=== PATIENT | female | born 1985 | race American Indian/Alaskan Native ===

== ENCOUNTER 2017-08-20 17:25 | Emergency (ER) | payer BC, OTHER ==
[2017-08-20 17:44] VITALS: BMI 29.5
[2017-08-20 17:47] VITALS: TEMP 98.2
--- NOTE | 2017-08-20 18:09 | ED PDOC ---
Arrival/HPI - General Historian: Patient - History of Present Illness Time/Duration: < week Symptom Onset: Gradual Symptom Course: Intermittent Quality: Tightness Severity Level: 4 Activities at Onset: Rest Context: Sitting, Home <MICHAEL PATTON - Last Filed: 08/20/17 22:06> <Jorge Johnson - Last Filed: 08/20/17 22:23> - General Chief Complaint: Back Pain Time Seen by Provider: 08/20/17 17:50 - History of Present Illness Narrative History of Present Illness (Text): 08/20/17 18:05 32yo AAF with no significant PMH presents w/ R-sided lower back pain that began 3 days ago. Pt describes the pain as tightness, non-radiating, relieved w/ Motrin, 4/10 in severity, and constant. Pt denies any fevers, chills, coughs, cp , sob, n/v/d, numbness/tingling, weakness, trauma or over-exertion. Pt works as a senior security analyst. Pt states that she was on OCP's from February till May for menstrual cycle regulation and has had regular 7day periods in May and June. Pt denies being sexually active. Pt states that pain is worse when laying down, and says it could be due to her bed. (MICHAEL PATTON) Past Medical History - Provider Review Nursing Documentation Reviewed: Yes - Past History Past History: No Previous - Infectious Disease Hx of Infectious Diseases: None - Tetanus Immunization Tetanus Immunization: Unknown - Past Medical History Past Medical History: No Previous - Cardiac Hx Cardiac Disorders: No - Pulmonary Hx Respiratory Disorders: No - Neurological Hx Neurological Disorder: No - HEENT Hx HEENT Disorder: No - Renal Hx Renal Disorder: No - Endocrine/Metabolic Hx Endocrine Disorders: No - Hematological/Oncological Hx Blood Disorders: No - Integumentary Hx Dermatological Disorder: No - Musculoskeletal/Rheumatological Hx Musculoskeletal Disorders: No - Gastrointestinal Hx Gastrointestinal Disorders: No - Genitourinary/Gynecological Hx Genitourinary Disorders: No - Psychiatric Hx Depression: No Hx Emotional Abuse: No Hx Physical Abuse: No Hx Substance Use: No - Past Surgical History Past Surgical History: No Previous - Anesthesia Hx Anesthesia: No - Suicidal Assessment Feels Threatened In Home Enviroment: No <MICHAEL PATTON - Last Filed: 08/20/17 22:06> Family/Social History Family/Social History: No Known Family HX Smoking Status: Never Smoked Hx Alcohol Use: No Hx Substance Use: No Hx Substance Use Treatment: No <MICHAEL PATTON - Last Filed: 08/20/17 22:06> Allergies/Home Meds <ABDIMICHAEL BELL - Last Filed: 08/20/17 22:06> <Ricardo Johnsonoper - Last Filed: 08/20/17 22:23> Allergies/Adverse Reactions: Allergies No Known Allergies Allergy (Verified 10/31/13 09:00) Home Medications: Home Meds Medication Instructions Recorded Confirmed No Known Home Med 08/20/17 08/20/17 Review of Systems - Physician Review All systems were reviewed & negative as marked: Yes - Review of Systems Constitutional: Normal. absent: Fatigue, Fevers, Night Sweats Respiratory: Normal Cardiovascular: Normal. absent: Chest Pain Gastrointestinal: Normal. absent: Abdominal Pain, Nausea, Vomiting Musculoskeletal: Back Pain (R ) <MICHAEL PATTON - Last Filed: 08/20/17 22:06> Physical Exam Vital Signs Reviewed: Yes Appearance: Positive for: Well-Appearing Pain Distress: None Mental Status: Positive for: Alert and Oriented X 3 - Systems Exam Head: Present: Atraumatic, Normocephalic Pupils: Present: PERRL Extroacular Muscles: Present: EOMI Conjunctiva: Present: Normal Ears: Present: Normal Mouth: Present: Moist Mucous Membranes Nose (External): Present: Atraumatic Neck: Present: Normal Range of Motion. No: JVD Respiratory/Chest: Present: Clear to Auscultation, Good Air Exchange Cardiovascular: Present: Regular Rate and Rhythm, Normal S1, S2 Abdomen: Present: Normal Bowel Sounds. No: Tenderness, Distention Back: Present: Paraspinal Tenderness (R lumbar ) Upper Extremity: Present: Normal Inspection Lower Extremity: Present: Normal Inspection <MICHAEL PATTON - Last Filed: 08/20/17 22:06> Vital Signs Temp Pulse Resp BP Pulse Ox 08/20/17 21:16 69 16 119/75 100 08/20/17 19:25 72 17 115/80 100 08/20/17 17:46 98.2 F 75 18 114/76 99 Medical Decision Making <MICHAEL PATTON - Last Filed: 08/20/17 22:06> <Jorge Johnson - Last Filed: 08/20/17 22:23> ED Course and Treatment: 08/20/17 18:19 Impression: Musculoskeletal back pain Differential Diagnosis included but are not limited to: MSK pain vs ectopic vs nephrolithiasis Plan: - Reassess and disposition - POC test - Motrin and Flexeril for back pain Progress Notes: 08/20/17 18:27 Nurse notified team that POC urinary test was positive 08/20/17 20:41 EXAM: US , Transvaginal CLINICAL HISTORY: The patient is a 32 years female; Pain; complicated by abdominal or pelvic pain; Lower; First trimester; Gestational age or lmp: 5 weeks; ; Additional info: R/ O ectopic 08/20/2017 6:17 PM TECHNIQUE: Real-time transvaginal obstetrical ultrasound of the maternal pelvis and a first trimester with image documentation. Transvaginal imaging was used for better evaluation of the fetus and adnexa. COMPARISON: No relevant prior studies available. FINDINGS: Gestation: Single intrauterine with yolk sac. No pole is identified at this time. The gestational sac corresponds to gestational age of 5 weeks and 1 day. Anteverted uterus. Uterus/cervix: See above Ovaries: 1.2 cm cystic structure in the right ovary. Otherwise, ovaries are normal size and demonstrate vascular flow.. Free fluid: No evidence of free fluid in the submitted imgaes. IMPRESSION: Single intrauterine with yolk sac. No pole is identified at this time. The gestational sac corresponds to gestational age of 5 weeks and 1 day. The remainder of the findings are as described above. EXAM: US First Trimester, Transabdominal CLINICAL HISTORY: The patient is a 32 years female; Pain; complicated by abdominal or pelvic pain; Lower; First trimester; Gestational age or lmp: 5 weeks; ; Additional info: R/ O ectopic 08/20/2017 6:17 PM TECHNIQUE: Real-time transabdominal obstetrical ultrasound of the maternal pelvis and a first trimester with image documentation. COMPARISON: No relevant prior studies available. FINDINGS: Gestation: Single intrauterine with yolk sac. No pole is identified at this time. The gestational sac corresponds to gestational age of 5 weeks and 1 day. Anteverted uterus. Uterus/cervix: See above Ovaries: 1.2 cm cystic structure in the right ovary. Otherwise, ovaries are normal size and demonstrate vascular flow.. Free fluid: No evidence of free fluid in the submitted imgaes. IMPRESSION: Single intrauterine with yolk sac. No pole is identified at this time. The gestational sac corresponds to gestational age of 5 weeks and 1 day. The remainder of the findings are as described above. Thank you for allowing us to participate in the care of your patient. Dictated and Authenticated by: Dane Pantoja MD 08/20/2017 8:10 PM Eastern Time ([place] & [place]) (MICHAEL PATTON) Patient Seen With Resident: In agreement with resident note which contains more details about the patient. Patient was seen and evaluated with resident. Came up with plan and treatment together. 08/20/17 22:21 Seen and examined with the resident. Our history and physical exam reveals a young woman who stopped her control pills several months ago. Her LMP is sometime in May. She complains of right lower back pain. She earlier had some right lower quadrant pain. There was no known injury or trauma. No radiation of the pain. No numbness tingling or paresthesias. No weakness. No nausea vomiting or diarrhea. No vaginal discharge or bleeding. No genitourinary symptoms. Her test is positive. Her abdomen is soft and nontender on exam, but we will rule out an ectopic with ultrasound. (Jorge Johnson) - Lab Interpretations Lab Results: 08/20/17 18:40 08/20/17 18:40 Lab Results 08/20/17 18:40: Beta HCG, Quant [id number] H 08/20/17 18:40: Sodium 139, Potassium 3.3 L, Chloride 100, Carbon Dioxide 27, Anion Gap 16, BUN 10, Creatinine 0.7, Est GFR ( Amer) > 60, Est GFR (Non- Af Amer) > 60, Random Glucose 84, Calcium 9.0, Phosphorus 3.4, Magnesium 1.7, Total Bilirubin 0.3, AST 25, ALT 25, Alkaline Phosphatase 81, Total Protein 7.7 , Albumin 4.3, Globulin 3.3, Albumin/Globulin Ratio 1.3 08/20/17 18:40: WBC 8.8, RBC 4.84, Hgb 12.1, Hct 37.6, MCV 77.7 L, MCH 25.0, MCHC 32.2, RDW 15.9 H, Plt Count 244, MPV 10.3, Gran % 53.7, Lymph % (Auto) 36.4 H, Cole % (Auto) 9.4 H, Eos % (Auto) 0.3 L, Baso % (Auto) 0.2, Gran # 4.70 , Lymph # 3.2, Cole # 0.8 H, Eos # 0.0, Baso # 0.02 08/20/17 18:26: Urine Color Yellow, Urine Appearance Sl cloudy, Urine pH 7.5, Ur Specific [place] 1.015, Urine Protein 30 H, Urine Glucose (UA) Negative, Urine Ketones Trace H, Urine Blood Negative, Urine Nitrate Negative, Urine Bilirubin Negative, Urine Urobilinogen 1.0 H, Ur Leukocyte Esterase Negative, Urine RBC 0 - 2, Urine WBC 1 - 3, Ur Epithelial Cells Many, Amorphous Sediment Few, Urine Bacteria Mod - RAD Interpretation Radiology Orders: 08/20/17 18:17 OB TRANSVAGINAL [US] Urgent Disposition/Present on Arrival - Present on Arrival Any Indicators Present on Arrival: No History of DVT/PE: No History of Uncontrolled Diabetes: No Urinary Catheter: No History of Decub. Ulcer: No History Surgical Site Infection Following: None - Disposition Have Diagnosis and Disposition been Completed?: Yes Disposition Time: 20:45 Patient Plan: Discharge <MICHAEL PATTON - Last Filed: 08/20/17 22:06> - Present on Arrival Any Indicators Present on Arrival: No History of DVT/PE: No History of Uncontrolled Diabetes: No Urinary Catheter: No History of Decub. Ulcer: No - Disposition Have Diagnosis and Disposition been Completed?: Yes Patient Plan: Discharge <Jorge Johnson - Last Filed: 08/20/17 22:23> - Disposition Diagnosis: , Low back pain Disposition: HOME/ ROUTINE Condition: GOOD Discharge Instructions (ExitCare): (ED), Acute Low Back Pain (ED) Additional Instructions: - follow up with an Steam Drier Operator MD to establish care - please start taking vitamins - avoid alcohol, smoking or any substance use Referrals: [facility], [Non-Staff] - Follow up with primary Forms: [employer] (Turkish)
[2017-08-20 19:00] LABS: PH,URINE 7.5 (4.7-8.0); URINE BILIRUBIN NEGATIVE (NEGATIVE); URINE BLOOD NEGATIVE (NEGATIVE); URINE GLUCOSE (UA) NEGATIVE (NEGATIVE); URINE KETONE TRACE mg/dL (NEGATIVE); URINE LEUKOCYTE ESTERASE NEGATIVE Leu/uL (NEGATIVE); URINE PROTEIN 30 mg/dL (<30 mg/dL)
[2017-08-20 19:03] LABS: BASO # 0.02 K/mm3 (0.0-2.0); BASO % 0.2 % (0.0-3.0); EOS % 0.3 % (1.5-5.0); GRAN # 4.7 (1.4-6.5); GRAN % 53.7 % (50.0-68.0); HEMATOCRIT 37.6 % (36.0-48.0); LYMPH # 3.2 (1.2-3.4); LYMPH % 36.4 % (22.0-35.0); MEAN CELL VOLUME 77.7 fl (80.0-105.0); MEAN CORPUSCULAR HGB CONC 32.2 g/dl (31.0-37.0); MEAN PLATELET VOLUME 10.3 fl (7.0-11.0); MONO # 0.8 (0.1-0.6); MONO % 9.4 % (1.0-6.0); RED CELL DISTRIBUTION WIDTH 15.9 % (11.5-14.5); WHITE BLOOD COUNT 8.8 10^3/ul (4.5-11.0)
[2017-08-20 19:04] LABS: ALB/GLOB RATIO 1.3 (1.1-1.8); ALKALINE PHOSPHATASE 81 U/L (38-126); ALT/SGPT 25 U/L (7-56); AST/SGOT 25 U/L (14-36); BILIRUBIN,TOTAL 0.3 mg/dL (0.2-1.3); BLOOD UREA NITROGEN 10 mg/dL (7-21); CARBON DIOXIDE 27 mmol/L (21-33); GFR AFRICAN-AMERICAN > 60; GLUCOSE,RANDOM 84 mg/dL (70-110); PHOSPHOROUS 3.4 mg/dL (2.5-4.5); TOTAL PROTEIN 7.7 g/dL (5.8-8.3)
[2017-08-20 19:08] LABS: URINE APPEARANCE SL CLOUDY (CLEAR); URINE COLOR YELLOW (YELLOW)
[2017-08-20 19:14] LABS: URINE BACTERIA MOD (NEG); URINE EPITHELIAL CELLS MANY /hpf (0-5); URINE RBC 0 - 2 /hpf (0-2)
[2017-08-20 19:15] LABS: URINE AMORPHOUS SEDIMENT FEW
[2017-08-20 19:32] LABS: CHLORIDE 100 mmol/L (95-110); MAGNESIUM 1.7 mg/dL (1.7-2.2); POTASSIUM 3.3 mmol/L (3.6-5.0); SODIUM 139 mmol/L (132-148)
[2017-08-20 21:15] VITALS: O2SAT 100
[2017-08-20 21:17] VITALS: BP 119/75; PULSE 69; RESP 16
--- NOTE | 2017-08-21 14:31 | US ---
PROCEDURE: OB Pelvic Ultrasound HISTORY: r/o ectopic COMPARISON: None available. FINDINGS: UTERUS: Intrauterine gestational sac identified. This measures 1.1 cm in mean diameter, corresponding to 5 weeks 1 day gestational age. No pole is identified. No cardiac activity is identified. A 2 mm yolk sac is seen. There is no subchorionic hemorrhage. The uterus measures 9.0 x 5.1 x 6.5 cm. There is no uterine mass. CERVIX: Long and closed. No cervical abnormality seen. RIGHT OVARY: Measures 3.3 x 2.1 x 2.8 cm. Simple 1.5 cm cyst identified, likely physiologic. LEFT OVARY: Measures 2.5 x 1.9 x 1.5 cm. No mass. Normal flow. FREE FLUID: None. OTHER FINDINGS: None. IMPRESSION: Early intrauterine gestation. pole and cardiac activity are not yet observed. No subchorionic hemorrhage. Gestational sac diameter corresponds to 5 weeks 1 day. Followup with serial beta HCG and transvaginal ultrasound is advised.
== END 2017-08-20 21:18 | disposition home or self-care (01) ==
LOC: ED 17:25
DX: O26.891 Other specified pregnancy related conditions, first trimester (principal); M54.5 Low back pain; Z3A.01 Less than 8 weeks gestation of pregnancy